=== PATIENT | male | born 1930 ===

== ENCOUNTER 2016-11-11 11:18 | Emergency (ER) | payer MEDICARE, OTHER ==
[~2016-11-11] VITALS: Ht 172.7 cm; Wt 95.0 kg
[2016-11-11 11:35] VITALS: BP 151/68; PULSE 65; RESP 16; TEMP 99; O2SAT 96
[2016-11-11] MEDS ORDERED: SYST0.4D2 EACH EYE (12:03)
[2016-11-11] MEDS ORDERED: ATIVAN TOP (12:03)
[2016-11-11] MEDS ORDERED: GLIP5TAB8 PO (12:03)
[2016-11-11] MEDS ORDERED: ZYPR7.5T PO (12:03)
[2016-11-11] MEDS ORDERED: SERT-132 PO (12:03)
[2016-11-11] MEDS ORDERED: ATOR20TA15 PO (12:03)
[2016-11-11] MEDS ORDERED: ATEN25TA PO (12:03)
[2016-11-11] MEDS ORDERED: FAMO20TA2 PO (12:03)
[2016-11-11] MEDS ORDERED: ASPI1TAB69 PO (12:03)
[2016-11-11] MEDS ORDERED: VALP250S18 PO (12:03)
[2016-11-11] MEDS ORDERED: ISOS60TA PO (12:03)
[2016-11-11] MEDS ORDERED: GABA100C4 PO (12:03)
[2016-11-11] MEDS ORDERED: PLAV75TA29 PO (12:03)
[2016-11-11] MEDS ORDERED: FERR325T PO (12:03)
[2016-11-11] MEDS ORDERED: MILKSUS PO (12:07)
[2016-11-11] MEDS ORDERED: DULC10SU3 RECTAL (12:11)
[2016-11-11] MEDS ORDERED: FLEEENE3 RECTAL (12:11)
[2016-11-11] MEDS ORDERED: NYSTCRE29 TOPICAL (12:12)
--- NOTE | 2016-11-11 13:18 | RADRPT ---
EXAM DATE/TIME: 11/11/2016 13:02 [facility] COMPARISON: No previous studies available for comparison. INDICATIONS : Fall MEDICAL HISTORY : None. SURGICAL HISTORY : None. ENCOUNTER: Initial ACUITY: 1 day PAIN SCORE: 5/10 LOCATION: Left shoulder FINDINGS: No fracture is seen of the left shoulder. Humeral head nearly abuts the undersurface of the acromion in the imaged position which is usually seen in the setting of a chronic full-thickness rotator cuff tear. 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 CONCLUSION: 1. No fracture or acute-appearing malalignment of the left shoulder. 2. Suspected rotator cuff tear. 3. Mild to moderate degenerative changes. Buddy Ho MD on November 11, 2016 at 13:16 Board Certified Radiologist. This report was verified electronically.
--- NOTE | 2016-11-11 13:22 | RADRPT ---
EXAM DATE/TIME: 11/11/2016 13:06 [facility] COMPARISON: No previous studies available for comparison. INDICATIONS : Fell forward and hit head. RADIATION DOSE: 41.91 CTDIvol (mGy) MEDICAL HISTORY : Dementia. Diabetes. SURGICAL HISTORY : None. ENCOUNTER: Initial ACUITY: 1 day PAIN SCALE: Non-responsive LOCATION: cranial TECHNIQUE: Multiple contiguous axial images were obtained of the head. Using automated exposure control and adj ustment of the mA and/or kV according to patient size, radiation dose was kept as low as reasonably a chievable to obtain optimal diagnostic quality images. FINDINGS: CEREBRUM: The ventricles are normal for age. No evidence of midline shift, mass lesion, hemorrhage or acute in farction. No extra-axial fluid collections are seen. Mild atrophy noted. POSTERIOR FOSSA: The cerebellum and brainstem are intact. The 4th ventricle is midline. The cerebellopontine angle i s unremarkable. EXTRACRANIAL: The visualized portion of the orbits is intact. SKULL: The calvaria is intact. No evidence of skull fracture. CONCLUSION: No acute intracranial abnormality. Buddy Ho MD on November 11, 2016 at 13:20 Board Certified Radiologist. This report was verified electronically.
--- NOTE | 2016-11-11 13:26 | RADRPT ---
EXAM DATE/TIME: 11/11/2016 13:06 [facility] COMPARISON: No previous studies available for comparison. INDICATIONS : Fell forward and hit head. RADIATION DOSE: 21.44 CTDIvol (mGy) MEDICAL HISTORY : Dementia. Diabetes. SURGICAL HISTORY : None. ENCOUNTER: Initial ACUITY: 1 day PAIN SCALE: Non-responsive LOCATION: neck TECHNIQUE: Volumetric scanning of the cervical spine was performed. Multiplanar reconstructions in the sagittal, coronal and oblique axial planes were performed. Using automated exposure control and adjustment o f the mA and/or kV according to patient size, radiation dose was kept as low as reasonably achievable to obtain optimal diagnostic quality images. FINDINGS: No fracture or subluxation demonstrated of the cervical spine. Vertebral bodies have normal height. Moderate to severe disc space narrowing and moderate uncovertebral and facet osteoarthritis seen at e ach level, C3/C4 through C6/C7. Associated mild to moderate foraminal encroachment, mainly right-side d at C5/C6 and left-sided at C6 or C7. There is mild spinal stenosis at these 2 levels as well. Juxtavertebral soft tissues are within normal limits. CONCLUSION: No fracture or subluxation of the cervical spine. Degenerative changes as above. Buddy Ho MD on November 11, 2016 at 13:21 Board Certified Radiologist. This report was verified electronically.
--- NOTE | 2016-11-11 13:36 | PD ---
HPI Chief Complaint: Fall Time Seen by Provider: 12:03 Travel History International Travel<30 days: No Contact w/Intl Traveler<30days: No Traveled to known affect area: No History of Present Illness HPI Is an 86-year-old male presents emergency department for [facility]. Patient apparently was at the bedside using an there are no when he fell forward into the air conditioning unit. Patient complains of the left shoulder pain. Patient has a history of dementia alert and awake and oriented and provides adequate history today. He denies any chest pain shortness of breath abdominal pain other injuries. Denies any neck pain or back pain. Denies any loss of consciousness. PFSH Past Medical History Hx Anticoagulant Therapy: Yes (PLAVIX) Anemia: Yes Anxiety: Yes Depression: Yes Diabetes: Yes Patient Takes Glucophage: No Diminished Hearing: No GERD: Yes Tetanus Vaccination: Unknown Influenza Vaccination: No ?: Not Past Surgical History Surgical History: Unable to Obtain Social History Alcohol Use: No Tobacco Use: Yes Substance Use: No Allergies-Medications (Allergen,Severity, Reaction): Coded Allergies: Penicillin (Verified Allergy, Unknown, 11/11/16) Reported Meds & Prescriptions Reported Meds & Active Scripts Active Reported Nystatin-Triamcinolone 100,000-0.1 Unit/Gm Cream 1 Applic TOPICAL BID PRN Fleet Enema Rectal (Sodium Phosphates Rectal) 7-19 Gm/118 Ml Enem 118 Ml RECTAL DAILY PRN Dulcolax Supp (Bisacodyl) 10 Mg Supp 10 Mg RECTAL IN MORNING PRN Milk of Magnesia Liq (Magnesium Hydroxide) 400 Mg/5 Ml Susp 30 Ml PO HS PRN [Ativan Gel] 1 Applic TOP Q8HR Depakene Liq (Valproic Acid) 250 Mg/5 Ml Syp 250 Mg PO TID Zyprexa (Olanzapine) 7.5 Mg Tab 7.5 Mg PO HS Systane Gel Opth (Polyethylene Glycol-Propylene Opth) 0.4-0.3% Drops 2 Drop EACH EYE HS Sertraline (Sertraline HCl) 50 Mg Tab 50 Mg PO DAILY Plavix (Clopidogrel Bisulfate) 75 Mg Tab 75 Mg PO DAILY Isosorbide Mononitrate ER (Isosorbide Mononitrate) 60 Mg Tab 60 Mg PO DAILY Glipizide 5 Mg Tab 5 Mg PO DAILY Take 30 minutes before a meal Gabapentin 100 Mg Cap 200 Mg PO DAILY Ferrous Sulfate 325 Mg Tab 325 Mg PO DAILY Famotidine 20 Mg Tab 20 Mg PO DAILY Atorvastatin (Atorvastatin Calcium) 20 Mg Tab 20 Mg PO HS Atenolol 25 Mg Tab 25 Mg PO DAILY Aspirin 81 Mg Tabdr 81 Mg PO DAILY Review of Systems Except as stated in HPI: all other systems reviewed are Neg Physical Exam Narrative GENERAL: Well-developed well-nourished no apparent distress SKIN: Warm and dry. HEAD: No raccoons eyes no deng signs, there is a superficial and early contusion to the left frontal area. Normocephalic. EYES: Pupils equal and round. No scleral icterus. No injection or drainage. ENT: No nasal bleeding or discharge. Mucous membranes pink and moist. NECK: Trachea midline. No JVD. CARDIOVASCULAR: Regular rate and rhythm. No murmur appreciated. RESPIRATORY: No accessory muscle use. Clear to auscultation. Breath sounds equal bilaterally. GASTROINTESTINAL: Abdomen soft, non-tender, nondistended. Hepatic and splenic margins not palpable. MUSCULOSKELETAL: No obvious deformities. No clubbing. No cyanosis. No edema. No tenderness or bruising the left shoulder, full nontender range of motion, left elbow negative, left wrist negative, her temperature me normal, with bilateral lower trauma is normal. Pulses Motor and sensory intact distally in all 4 extremities. NEUROLOGICAL: Awake and alert. No obvious cranial nerve deficits. Motor grossly within normal limits. Normal speech. PSYCHIATRIC: Appropriate mood and affect; insight and judgment normal. Data Data Last Documented VS Vital Signs Date Time Temp Pulse Resp B/P Pulse Ox O2 Delivery O2 Flow Rate FiO2 11/11/16 14:23 98.3 68 17 165/[address] Brain W/O Iv Contrast(Rout) (11/11/16 ) Ct Cerv Spine W/O Contrast (11/11/16 ) Shoulder, Complete (>2vws) (11/11/16 ) [facility] Medical Decision Making Medical Screen Exam Complete: Yes Emergency Medical Condition: Yes Differential Diagnosis Fall, closed head injury, neck injury, left shoulder injury. Narrative Course Patient is an 86-year-old male presents emergency Department [facility] from a ground level fall. He appears well and appears to suffer minimal trauma. Only notable physical exam finding is a bruise to the left forehead. CT head C-spine and left shoulder films are negative for acute injury. There could be some rotator cuff injury according to the x-ray results. He is able to range at this time. He stable for discharge discussed with him could consider follow-up with orthopedic surgeon if he so desires. Diagnosis Primary Impression: Left shoulder pain Qualified Code: M25.512 - Acute pain of left shoulder Additional Instructions: Patient may have a mild tear of his left rotator cuff. No fractures of his head neck or left shoulder. Disposition: 01 DISCHARGE HOME Condition: Stable Jordi Valderrama MD Nov 11, 2016 13:36
[2016-11-11 14:23] VITALS: BP 165/71; PULSE 68; RESP 17; TEMP 98.3; O2SAT 98
== END 2016-11-11 15:25 | disposition home or self-care (01) ==
LOC: NEPA 11:18
DX: M25.512 Pain in left shoulder (principal); E11.9 Type 2 diabetes mellitus without complications; D64.9 Anemia, unspecified; W18.00XA Striking against unspecified object with subsequent fall, initial encounter; Z72.0 Tobacco use; Y92.10 Unspecified residential institution as the place of occurrence of the external cause; Y99.9 Unspecified external cause status; Y93.89 Activity, other specified
CPT/HCPCS: 70450; 72125; 73030

== ENCOUNTER 2017-06-30 21:53 | Inpatient (IN) | payer MEDICARE, OTHER ==
[~2017-06-30] VITALS: Ht 170.2 cm; Wt 77.3 kg
[2017-06-30] VITALS (8 sets, daily range): BP systolic 93–116; BP diastolic 56–83; PULSE 118–136; O2SAT 97–98
[~2017-06-30 21:53] MED LIST: ASPI1TAB69 PO; ATEN25TA PO; ATIVAN TOP; ATOR20TA15 PO; DULC10SU3 RECTAL; FAMO20TA2 PO; FERR325T PO; FLEEENE3 RECTAL; GABA100C4 PO; GLIP5TAB8 PO; ISOS60TA PO; MILKSUS PO; NYSTCRE29 TOPICAL; PLAV75TA29 PO; SERT-132 PO; SYST0.4D2 EACH EYE; VALP250S18 PO; ZYPR7.5T PO
[2017-06-30] MEDS ORDERED: HEPARIN SODIUM - IV 10,000 UNITS/10 ML VIAL IV PUSH STA (22:13)
[2017-06-30] MEDS ORDERED: SODIUM CHLOR 0.9% 1000 ML INJ 1,000 ML IV ONE (22:13)
--- NOTE | 2017-06-30 22:13 | PD ---
HPI Chief Complaint: Chest Pain Time Seen by Provider: 22:00 Travel History International Travel<30 days: No Contact w/Intl Traveler<30days: No Traveled to known affect area: No History of Present Illness HPI PER EMS BASELINE DEMENTIA/CONFUSED BUT DURING HIS STAY....SENT FROM [facility] BECAUSE C/O CHEST PAIN, SUBSTERNAL TO LEFT CHEST, PRESSURE, ? INTENSITY, UNKNOWN IF RADIATING DUE TO LIMITATIONS ON HISTORY DUE TO DEMENTIA CHART AND NURSING NOTES REVIEWED PMHX:DM, HTN, PCP DR REEVES [facility] Past Medical History Hx Anticoagulant Therapy: Yes (PLAVIX) Anemia: Yes Anxiety: Yes Depression: Yes Diabetes: Yes Diminished Hearing: No GERD: Yes Social History Alcohol Use: No Tobacco Use: Yes Substance Use: No Allergies-Medications (Allergen,Severity, Reaction): Coded Allergies: penicillin G (Unverified Allergy, Unknown, 04/30/17) Reported Meds & Prescriptions Reported Meds & Active Scripts Active Reported Nystatin-Triamcinolone 100,000-0.1 Unit/Gm Cream 1 Applic TOPICAL BID PRN Dulcolax Supp (Bisacodyl) 10 Mg Supp 10 Mg RECTAL IN MORNING PRN Milk of Magnesia Liq (Magnesium Hydroxide) 400 Mg/5 Ml Susp 30 Ml PO HS PRN [Ativan Gel] 1 Applic TOP Q8HR Depakene Liq (Valproic Acid) 250 Mg/5 Ml Syp 250 Mg PO TID Zyprexa (Olanzapine) 7.5 Mg Tab 7.5 Mg PO HS Systane Gel Opth (Polyethylene Glycol-Propylene Opth) 0.4-0.3% Drops 2 Drop EACH EYE HS Sertraline (Sertraline HCl) 50 Mg Tab 50 Mg PO DAILY Plavix (Clopidogrel Bisulfate) 75 Mg Tab 75 Mg PO DAILY Isosorbide Mononitrate ER (Isosorbide Mononitrate) 60 Mg Tab 60 Mg PO DAILY Glipizide 5 Mg Tab 5 Mg PO DAILY Take 30 minutes before a meal Gabapentin 100 Mg Cap 200 Mg PO DAILY Famotidine 20 Mg Tab 20 Mg PO DAILY Atorvastatin (Atorvastatin Calcium) 20 Mg Tab 20 Mg PO HS Atenolol 25 Mg Tab 25 Mg PO DAILY Review of Systems Except as stated in HPI: all other systems reviewed are Neg Cardiovascular: Positive: Chest Pain or Discomfort Physical Exam Exam Limitations: Poor Historian, Other: Narrative GENERAL: SKIN: Warm and dry. HEAD: Atraumatic. Normocephalic. EYES: Pupils equal and round. No scleral icterus. No injection or drainage. ENT: No nasal bleeding or discharge. Mucous membranes pink and moist. NECK: Trachea midline. No JVD. CARDIOVASCULAR: Regular rate and rhythm. RESPIRATORY: No accessory muscle use. Clear to auscultation. Breath sounds equal bilaterally. GASTROINTESTINAL: Abdomen soft, non-tender, nondistended. MUSCULOSKELETAL: Extremities without clubbing, cyanosis, or edema. No obvious deformities. NEUROLOGICAL: Awake A BIT CONFUSED, GCS 14/15. No obvious cranial nerve deficits. Motor grossly within normal limits. Five out of 5 muscle strength in the arms and legs. Normal speech. PSYCHIATRIC: Appropriate mood and affect; insight and judgment normal. Data Data Last Documented VS Vital Signs Date Time Temp Pulse Resp B/P (MAP) Pulse Ox O2 Delivery O2 Flow Rate FiO2 06/30/17 22:24 120 112/81 (91) 98 Nasal Cannula 2.00 06/30/17 22:19 97 Orders Orders Troponin I (06/30/17 22:13) Ckmb (Isoenzyme) Profile (06/30/17 22:13) Complete Blood Count With Diff (06/30/17 22:13) I-Stat Profile (06/30/17 22:13) I-Stat Creatinine (06/30/17 22:) Calcium (06/30/17 22:13) Magnesium (Mg) (06/30/17 22:13) Prothrombin Time / Inr (Pt) (06/30/17 22:13) Act Partial Throm Time (Ptt) (06/30/17 22:13) B-Type Natriuretic Peptide (06/30/17 22:13) Chest, Single Ap (06/30/17 22:13) Electrocardiogram (06/30/17 22:13) Oxygen Administration (06/30/17 22:13) Iv Access Insert/Monitor (06/30/17 22:13) Oximetry (06/30/17 22:13) Sodium Chlor 0.9% 1000 Ml Inj (Ns 1000 M (06/30/17 22:13) Sodium Chloride 0.9% Flush (Ns Flush) (06/30/17 22:15) Heparin Inj (Heparin Inj) (06/30/17 22:13) Nitroglycerin 2% Oint (Nitroglycerin 2% (06/30/17 22:15) Morphine Inj (Morphine Inj) (06/30/17 22:30) Admit Order (Ed Use Only) (06/30/17 22:42) Online Communications Specialist / Telemetry HOLA.Q8H (06/30/17 22:42) Diet Heart Healthy (07/01/17 Breakfast) Activity Bed Rest (06/30/17 22:42) Notify Dr: Other (06/30/17 22:42) CKMB (06/30/17 22:05) CKMB% (06/30/17 22:05) Labs Laboratory Tests Test 06/30/17 22:05 White Blood Count 17.1 TH/MM3 Red Blood Count 4.13 MIL/MM3 Hemoglobin 13.2 GM/DL Bedside Hemoglobin 14.3 G/DL Hematocrit 39.9 % Bedside Hematocrit 42.0 % Mean Corpuscular Volume 96.8 FL Mean Corpuscular Hemoglobin 31.9 PG Mean Corpuscular Hemoglobin Concent 32.9 % Red Cell Distribution Width 14.4 % Platelet Count 301 TH/MM3 Mean Platelet Volume 8.3 FL Neutrophils (%) (Auto) 81.3 % Lymphocytes (%) (Auto) 13.2 % Monocytes (%) (Auto) 4.8 % Eosinophils (%) (Auto) 0.3 % Basophils (%) (Auto) 0.4 % Neutrophils # (Auto) 13.9 TH/MM3 Lymphocytes # (Auto) 2.3 TH/MM3 Monocytes # (Auto) 0.8 TH/MM3 Eosinophils # (Auto) 0.1 TH/MM3 Basophils # (Auto) 0.1 TH/MM3 CBC Comment DIFF FINAL Differential Comment Prothrombin Time 11.7 SEC Prothromb Time International Ratio 1.1 RATIO Activated Partial Thromboplast Time 28.5 SEC Bedside Sodium 138 MMOL/L Bedside Potassium 4.2 MMOL/L Bedside Chloride 103 MMOL/L Bedside Blood Urea Nitrogen 21 MG/DL Bedside Creatinine 1.8 MG/DL Bedside Glucose 339 MG/DL Calcium Level 9.0 MG/DL Magnesium Level 2.0 MG/DL Total Creatine Kinase 164 U/L Creatine Kinase MB 15.1 NG/ML Troponin I 14.20 NG/ML B-Type Natriuretic Peptide 757 PG/ML MDM Medical Decision Making Medical Screen Exam Complete: Yes Emergency Medical Condition: Yes Medical Record Reviewed: Yes Interpretation(s) ST 119, RBBB, V2/V3/V4 CONCORDANCE NOTED. ISTAT: SODIUM 138, POTASSIUM 4/2, GLUCOSE 339, H/H=14/42...CREATININE 1.8 Differential Diagnosis STEMI V TAA V NONSTEMI Narrative Course D/W MS KEVEN REYNOSO (DAUGHTER) WHO WANTS TREATMENT OF STEMI, BUT TO HONOR DNR SHOULD HE CODE Critical Care Narrative CRITICAL CARE NOTE: With evaluation of the patient, labs, EKG, receipt of radiologic studies, administration of medications, reevaluation the patient and discussion of the patient with the admitting physician, COMPOTYPE OPERATOR, FAMILY DISCUSSION CONCERNING TREATMENT AND DNR STATUS, the total critical care time was [45] minutes. Time to perform other separately billable procedures was not included in the critical care time. Physician Communication Physician Communication DR THOMAS AWARE OF STEMI CALL, TEAM CALLED, HOWEVER AFTER DR THOMAS DISCUSSED THE NEED TO SUSPEND DNR FOR 24HRS TO PERFORM STENTING, FAMILY CHANGED THEIR MIND AND DECIDED TO OPT OUT OF STENTING AND WERE OK WITH MEDICAL MANAGEMENT. DR REEVES CALLED AND MADE AWARE. Diagnosis Primary Impression: ANTERIOR STEMI Admitting Information Admitting Physician Requests: Admit Donavon Elder MD Jun 30, 2017 22:13
[2017-06-30] MEDS ORDERED: SODIUM CHLORIDE 0.9% FLUSH 10 ML FLUSH IVF PRN (22:15)
[2017-06-30] MEDS ORDERED: NITROGLYCERIN 2% OINT 1 GM PACKET TOPICAL ONE (22:15)
--- NOTE | 2017-06-30 22:21 | RADRPT ---
EXAM DATE/TIME: 06/30/2017 22:14 [facility] COMPARISON: No previous studies available for comparison. INDICATIONS : Stemi Alert MEDICAL HISTORY : Dementia. Diabetes. SURGICAL HISTORY : None. ENCOUNTER: Initial ACUITY: 1 day PAIN SCORE: Non-responsive. LOCATION: chest FINDINGS: A single view of the chest demonstrates diffuse interstitial edema with bilateral pleural effusions a nd bibasilar lung consolidation. Heart is within normal limits in size. CONCLUSION: Acute pulmonary edema with bibasilar airspace disease and bilateral pleural effusions. Nick Banerjee MD on June 30, 2017 at 22:19 Board Certified Radiologist. This report was verified electronically.
[2017-06-30 22:28] LABS: AUTOMATED NEUTROPHIL # 13.9 TH/MM3 (1.8-7.7); BASOPHIL # 0.1 TH/MM3 (0-0.2); BASOPHIL % 0.4 % (0.0-2.0); EOSINOPHIL # 0.1 TH/MM3 (0-0.4); EOSINOPHIL % 0.3 % (0.0-4.0); HEMATOCRIT 39.9 % (39.0-51.0); HEMO FLAGS DIFF FINAL; I-STAT POTASSIUM 4.2 MMOL/L (3.5-4.9); I-STAT SODIUM 138 MMOL/L (138-146); LYMPH % 13.2 % (9.0-44.0); LYMPHOCYTE # 2.3 TH/MM3 (1.0-4.8); MEAN CELL VOLUME 96.8 FL (80.0-100.0); MEAN CORPUSCULAR HEMOGLOBIN 31.9 PG (27.0-34.0); MEAN CORPUSCULAR HGB CONC 32.9 % (32.0-36.0); MONO % 4.8 % (0.0-8.0); NEUT % 81.3 % (16.0-70.0); PLATELET COUNT 301 TH/MM3 (150-450); RED BLOOD COUNT 4.13 MIL/MM3 (4.50-5.90); RED CELL DISTRIBUTION WIDTH 14.4 % (11.6-17.2); WHITE BLOOD COUNT 17.1 TH/MM3 (4.0-11.0)
[2017-06-30] MEDS ORDERED: MORPHINE SULFATE 4 MG/ML INJ IV PUSH ONE (22:30)
[2017-06-30] MEDS ORDERED: FUROSEMIDE 20 MG/2 ML VIAL IV PUSH ONE (22:45)
[2017-06-30] MEDS ORDERED: HEPARIN-D5W 25,000 U/250 ML 250 ML IV PRN (22:45)
[2017-06-30 22:46] LABS: CREATINE KINASE 164 U/L (39-308)
[2017-06-30] MEDS ORDERED: NALOXONE HCL 0.4 MG/ML AMP IV PUSH PRN (23:00)
[2017-06-30] MEDS ORDERED: SODIUM CHLORIDE 0.9% FLUSH 10 ML FLUSH IV FLUSH PRN (23:00)
[2017-06-30] MEDS ORDERED: ACETAMINOPHEN 325 MG TAB PO PRN (23:00)
[2017-06-30 23:01] LABS: CKMB 15.1 NG/ML (0.5-3.6)
[2017-06-30 23:12] LABS: APTT (PATIENT) 28.5 SEC (24.3-30.1); INTERNATIONAL NORMALIZED RATIO 1.1 RATIO; PROTHROMBIN TIME - PATIENT 11.7 SEC (9.8-11.6)
[2017-06-30] MEDS ORDERED: MAGNESIUM HYDROXIDE SUSP 30 ML CUP PO PRN (23:15)
[2017-06-30] MEDS ORDERED: NYSTATIN/TRIAMCINOLONE CREAM 15 GM TOPICAL PRN (23:15)
[2017-06-30] MEDS ORDERED: SODIUM CHLORID 0.9% 500 ML INJ 500 ML IV ONE (23:30)
[2017-06-30] MEDS ORDERED: HALOPERIDOL LACTATE 5 MG/ML AMP IV PUSH ONE (23:30)
[2017-07-01] VITALS (13 sets, daily range): BP systolic 87–140; BP diastolic 53–81; PULSE 80–132; RESP 22; O2SAT 91–99
[2017-07-01] MEDS ORDERED: SODIUM CHLORID 0.9% 500 ML INJ 500 ML IV ONE (02:15)
[2017-07-01 04:26] LABS: AUTOMATED NEUTROPHIL # 16.3 TH/MM3 (1.8-7.7); BASOPHIL # 0.1 TH/MM3 (0-0.2); BASOPHIL % 0.5 % (0.0-2.0); HEMATOCRIT 42.8 % (39.0-51.0); HEMO FLAGS DIFF FINAL; LYMPH % 6.1 % (9.0-44.0); LYMPHOCYTE # 1.1 TH/MM3 (1.0-4.8); MEAN CELL VOLUME 99.2 FL (80.0-100.0); MEAN CORPUSCULAR HEMOGLOBIN 30.9 PG (27.0-34.0); MEAN CORPUSCULAR HGB CONC 31.1 % (32.0-36.0); MONO % 5.5 % (0.0-8.0); NEUT % 87.9 % (16.0-70.0); PLATELET COUNT 320 TH/MM3 (150-450); RED BLOOD COUNT 4.32 MIL/MM3 (4.50-5.90); WHITE BLOOD COUNT 18.6 TH/MM3 (4.0-11.0)
[2017-07-01 04:37] LABS: ANION GAP 20 MEQ/L (5-15); AST (GOT) 247 U/L (15-37); BICARBONATE 12.5 MEQ/L (21.0-32.0); CHLORIDE 107 MEQ/L (98-107); GLOMERULAR FILTRATION RATE 29 ML/MIN (>89); POTASSIUM 4.5 MEQ/L (3.5-5.1); SODIUM (NA) 139 MEQ/L (136-145)
[2017-07-01] MEDS ORDERED: HEPARIN SODIUM - IV 10,000 UNITS/10 ML VIAL IV PUSH PRN ×2 (04:45)
[2017-07-01 04:46] LABS: ALT (GPT) 74 U/L (12-78); TOTAL BILIRUBIN ADULT 1.4 MG/DL (0.2-1.0)
[2017-07-01 04:57] LABS: BLOOD UREA NITROGEN 23 MG/DL (7-18)
[2017-07-01 04:58] LABS: ALKALINE PHOSPHATASE 79 U/L (45-117)
--- NOTE | 2017-07-01 05:46 | MB ---
cc: ANTONIO THOMAS DO DATE OF CONSULTATION June 30, [address]-elevation myocardial infarction. HISTORY OF PRESENT ILLNESS Igor Levy is a pleasant 86-year-old male who presented to [facility] on June 30, 2017, due to chest pain. The patient is from [facility] and while there had substernal chest pain to the left chest. It is difficult to ascertain a full story from him due to his baseline dementia and confusion. He was given nitroglycerin and sent to the emergency room. Upon arrival here EKG was done which showed sinus tachycardia, right bundle branch block, left anterior fascicular block, and extensive ST elevations anterior laterally concerning for an acute anterior lateral infarct. Because of this I was asked to see the patient. Upon arrival it was found out that the patient has a [facility] DNR status. His two daughters are here and we discussed the overall procedure and rescinding of the DNR status for the procedure. At this time they state that he underwent a cardiac catheterization a few years ago and was told that he has a significant number of blockages and the doctor at that time offered no intervention. In discussing with the daughters, specifically the power of state attorney Maria Victoria, she would like for him to be treated medically as she knows he has extensive coronary artery disease. PAST MEDICAL HISTORY 1. Coronary artery disease. 2. Dementia. 3. Colon cancer. 4. Diabetes mellitus type 2. PAST SURGICAL HISTORY 1. Extensive colectomy for colon cancer. 2. Cardiac catheterization, per the daughter a number of years ago and showed extensive coronary artery disease with no offer for any type of intervention per the treating physician. 3. Cholecystectomy. ALLERGIES PENICILLIN. MEDICATIONS 1. Plavix 75 mg daily. 2. Lipitor 20 mg every night. 3. Isosorbide mononitrate 60 mg daily. 4. Atenolol 25 mg daily. 5. Gabapentin 200 mg daily. 6. Valproic acid 250 mg t.i.d. 7. Sertraline 50 mg daily. 8. Zyprexa 7.5 mg every night. 9. Pepcid 20 mg daily. 10. Glipizide 5 mg daily. FAMILY HISTORY Denies premature coronary artery disease or sudden cardiac within the family. SOCIAL HISTORY The patient worked all his life. He smoked but quit around 50 years ago. Never was a heavy drinker or use of drugs. REVIEW OF SYSTEMS 14-systems were reviewed including osteopathic pertinent positives and negatives above, otherwise negative. PHYSICAL EXAMINATION VITAL SIGNS: Temperature 98.0, heart rate 120, blood pressure 112/81, respirations 18, pulse ox 98% on 2 liters. IN GENERAL: The patient appears well. No acute distress. Alert and awake but not oriented. Extraocular muscles intact. Mucous membranes moist. NECK: Supple. No JVD at 45 degrees. No carotid bruits heard bilaterally. Carotid upstroke is brisk in nature. HEART: Tachycardiac. Positive first and second heart sounds with a 1/6 crescendo-decrescendo murmur to the right sternal border. LUNGS: Decreased breath sounds bilaterally with minimal rales noted. ABDOMEN: Soft, nontender, nondistended. No organomegaly noted. EXTREMITIES: No clubbing, cyanosis or edema. Femoral and distal pulses intact bilaterally. NEUROLOGICALLY: No focal deficits. SKIN: Warm, dry and intact. OSTEOPATHIC EXAM: No kyphoscoliosis, lordosis or paraspinal tender points. LABORATORY FINDINGS Hemoglobin 13.2, hematocrit 39.9, platelets 301. Potassium 4.0, BUN 21, creatinine 1.8. ELECTROCARDIOGRAM (June 30, 2017 at 22:00) Sinus tachycardia, right bundle branch block, left anterior fascicular block, extensive ST elevation anterior laterally concerning for an acute anterior lateral myocardial infarction. IMPRESSIONS 1. Chest pain concerning for coronary insufficiency. 2. Acute anterior lateral myocardial infarction. 3. History of extensive coronary artery disease. 4. Diabetes mellitus. 5. History of colon cancer status post colectomy. 6. Remote tobacco abuse. RECOMMENDATIONS 1. Mr. Levy presented with extensive chest pain and an abnormal EKG showing anterior lateral elevation concerning for an acute anterior lateral myocardial infarction. 2. I discussed this extensively with the patient's daughter and power of state attorney and she states that he has extensive history of coronary artery disease and was told that they were unable to intervene in any way on it. I offered cardiac catheterization at least for diagnostic purposes and possible intervention and she states that she would not want him to go back through that. 3. We will attempt to treat him as best as we can medically. He will continue on aspirin, Plavix, beta trupti and nitroglycerin therapy. He will be placed on a heparin drip. He does appear to be in mild heart failure and so we will attempt to diurese him but we will have to watch his overall kidney function. We will plan on checking an echo to look at his overall left ventricular function, cardiac structure and possible valvopathies. 4. Further recommendations based on the hospital course. Thank you for allowing me to see Igor Levy. If there are any questions, please do not hesitate to call. Antonio Thomas DO VGP/SSB /10:34 PM /5:27 AM
[2017-07-01] MEDS ORDERED: ATIVAN SCH (06:00)
[2017-07-01] MEDS ORDERED: CLOPIDOGREL 75 MG TAB PO SCH ×2 (09:00)
[2017-07-01] MEDS ORDERED: SODIUM CHLORIDE 0.9% FLUSH 10 ML FLUSH IV FLUSH SCH (09:00)
[2017-07-01] MEDS ORDERED: FAMOTIDINE 20 MG TAB PO SCH (09:00)
[2017-07-01] MEDS ORDERED: VALPROIC ACID SYRUP 250 MG/5 ML UDC PO SCH (09:00)
[2017-07-01] MEDS ORDERED: GABAPENTIN 100 MG CAP PO SCH (09:00)
[2017-07-01] MEDS ORDERED: ATENOLOL 25 MG TAB PO SCH (09:00)
[2017-07-01] MEDS ORDERED: glipiZIDE 5 MG TAB PO SCH (09:00)
[2017-07-01] MEDS ORDERED: SERTRALINE HCL 50 MG TAB PO SCH (09:00)
[2017-07-01] MEDS ORDERED: ASPIRIN 81 MG CHEW TAB CHEW SCH (09:00)
[2017-07-01] MEDS ORDERED: ISOSORBIDE MONONITRATE 60 MG TAB PO SCH (09:00)
--- NOTE | 2017-07-01 18:04 | HHI.DS ---
Summary Note Date of : Jul 01, 2017 Time Of : 648 Admission Date Jun 30, 2017 at 22:44 Admitting Diagnosis ANTERIOR STEMI, DNR Diagnosis at Time of : (1) STEMI (ST elevation myocardial infarction) ICD Code: I21.3 - ST elevation (STEMI) myocardial infarction of unspecified site Brief History 86 year gentleman from [facility] was admitted for a chest pain. Patient with dementia and extensive medical history. Cardiology consulted. Patient is a DNR. CBC/BMP: 07/01/17 0402 07/01/17 0402 Significant Findings Laboratory Tests Test 06/30/17 22:05 07/01/17 04:02 White Blood Count 17.1 TH/MM3 (4.0-11.0) 18.6 TH/MM3 (4.0-11.0) Red Blood Count 4.13 MIL/MM3 (4.50-5.90) 4.32 MIL/MM3 (4.50-5.90) Neutrophils (%) (Auto) 81.3 % (16.0-70.0) 87.9 % (16.0-70.0) Neutrophils # (Auto) 13.9 TH/MM3 (1.8-7.7) 16.3 TH/MM3 (1.8-7.7) Prothrombin Time 11.7 SEC (9.8-11.6) Bedside Creatinine 1.8 MG/DL (0.8-1.3) Bedside Glucose 339 MG/DL (60-95) Creatine Kinase MB 15.1 NG/ML (0.5-3.6) Troponin I 14.20 NG/ML (0.02-0.05) GREATER THAN 40.00 NG/ML B-Type Natriuretic Peptide 757 PG/ML (0-100) Mean Corpuscular Hemoglobin Concent 31.1 % (32.0-36.0) Lymphocytes (%) (Auto) 6.1 % (9.0-44.0) Monocytes # (Auto) 1.0 TH/MM3 (0-0.9) Blood Urea Nitrogen 23 MG/DL (7-18) Creatinine 2.16 MG/DL (0.60-1.30) Random Glucose 328 MG/DL (74-106) Albumin 3.0 GM/DL (3.4-5.0) Aspartate Amino Transf (AST/SGOT) 247 U/L (15-37) Total Bilirubin 1.4 MG/DL (0.2-1.0) Carbon Dioxide Level 12.5 MEQ/L (21.0-32.0) Anion Gap 20 MEQ/L (5-15) Estimat Glomerular Filtration Rate 29 ML/MIN (>89) Imaging Last 48 hours Impressions Chest X-Ray 06/30/17 4548 Signed Impressions: Service Date/Time: Friday, June 30, 2017 22:14 - CONCLUSION: Acute pulmonary edema with bibasilar airspace disease and bilateral pleural effusions. Nick Banerjee MD Hospital Course .Patient prior to attending seeing patient from cardiopulmonary arrest. Per cardiology discussed extensively with the patient's daughter and power of rf technician and she states that he has extensive history of coronary artery disease and was told that they were unable to intervene in any way on it. Cardiac catheterization was offered however POA did not want patient to go through that. Patient was pronounced at [address] Elder. Cristela Macias Jul 01, 2017 18:04
[2017-07-01] MEDS ORDERED: POLYETHYLENE GLYCOL PROPYLENE OPTH EACH EYE SCH (21:00)
[2017-07-01] MEDS ORDERED: ATORVASTATIN 20 MG TAB PO SCH (21:00)
[2017-07-01] MEDS ORDERED: OLANZapine 5 MG TAB PO SCH (21:00)
--- NOTE | 2017-07-01 21:58 | EKG ---
Date Performed: 07/01/2017 Time Performed: 03:55:15 PTAGE: 86 years EKG: WIDE COMPLEX TACHYCARDIA RIGHT BUNDLE BRANCH BLOCK LEFT ANTERIOR FASCICULAR BLOCK ANTERIOR INFARCTION ABNORMAL ECG Compared to prior tracing no significant change DOCTOR: Lauryn Bajwa Interpretating Date/Time 07/01/2017 21:58:09
--- NOTE | 2017-07-01 22:12 | EKG ---
Date Performed: 06/30/2017 Time Performed: 22:00:11 PTAGE: 86 years EKG: SINUS TACHYCARDIA RIGHT BUNDLE BRANCH BLOCK LEFT ANTERIOR FASCICULAR BLOCK ANTERIOR MYOCARD IAL INFARCTION ACUTE WA NO PREVIOUS TRACING DOCTOR: Lauryn Bajwa Interpretating Date/Time 07/01/2017 22:10:29
== END 2017-07-01 15:59 | disposition expired ==
LOC: NEPC 21:53 → NEDA 22:44 → NEDH 07-01 03:14
PROVIDERS: ADMIT Family Medicine; ATTEND Family Medicine
DX: I21.09 ST elevation (STEMI) myocardial infarction involving other coronary artery of anterior wall (principal); I45.2 Bifascicular block; F03.90 Unspecified dementia, unspecified severity, without behavioral disturbance, psychotic disturbance, mood disturbance, and anxiety; E11.9 Type 2 diabetes mellitus without complications; I25.10 Atherosclerotic heart disease of native coronary artery without angina pectoris; Z66 Do not resuscitate; I10 Essential (primary) hypertension; Z85.038 Personal history of other malignant neoplasm of large intestine; Z87.891 Personal history of nicotine dependence; Z79.84 Long term (current) use of oral hypoglycemic drugs; Z88.0 Allergy status to penicillin
CPT/HCPCS: 71010; 80053; 82310; 82435; 82550; 82552; 82565; 82947; 83735; 83880; 84132; 84295; 84484; 84520; 85025; 85610; 85730; 93005; 96374; 96375; J1630; J1644; J1940; J2270; J7030; J7040